=== PATIENT | male | born 1995 | race Caucasian/White ===

== ENCOUNTER 2023-09-30 04:00 | Day surgery (SDC) | payer OTHER ==
[~2023-09-30] VITALS: Ht 182.9 cm; Wt 92.0 kg
[2023-09-30 08:00] VITALS: BP 112/74
[2023-09-30 08:04] LABS: BASO% 0.3 % (0-3); EOS% 2.6 % (0-8); HEMATOCRIT 39.3 % (39.0-50.0); HEMOGLOBIN 13.4 g/dl (14.0-18.0); IMMATURE GRANULOCYTES 0.1 % (0.0-5.0); LYMPH% 36.9 % (15-41); MEAN CELL VOLUME 90.8 fL CALC (80.0-100.0); MEAN CORPUSCULAR HGB 30.9 pG CALC (26.0-32.0); MEAN CORPUSCULAR HGB CONC 34.1 g/dL CAL (32.0-36.0); MONO% 8.6 % (2-13); NEUT# 4.1 thou/uL (1.82-7.42); NEUT% 51.5 % (42-76); RED BLOOD COUNT 4.33 mill/uL (4.70-6.10); RED CELL DISTRI WIDTH 12.5 % (11.5-15.5)
[2023-09-30 08:40] LABS: ALBUMIN 4.6 g/dL (3.2-5.0); ALKALINE PHOSPHATASE 58 u/l (38-126); ANION GAP 15 (6-22 (CALC)); BILIRUBIN, TOTAL 0.6 mg/dL (0.2-1.3); BUN 18 mg/dL (9-20); BUN/CREATININE RATIO 18 (12-20 (CALC)); CARBON DIOXIDE 26 mmol/l (22-30); CHLORIDE 105 mmol/l (95-108); GFR FOR AFR.AMER. > 60 ML/MIN (>=60 (CALC)); GFR OTHER RACES > 60 ML/MIN (>=60 (CALC)); POTASSIUM 4.3 mmol/l (3.5-5.1); SGOT/AST 27 u/l (17-59); SODIUM 141 mmol/l (137-146); TOTAL PROTEIN 7.4 g/dL (6.3-8.2)
[2023-09-30] MEDS ORDERED: KLONOPIN2 MG PO (14:35)
[2023-09-30] MEDS ORDERED: CLONIDINE0.1 MG PO (14:35)
[2023-09-30] MEDS ORDERED: NALTREXONE50 MG PO (14:35)
[2023-09-30 19:59] VITALS: BP 132/82
[2023-09-30 22:24] VITALS: BP 143/82
[2023-10-01 04:09] VITALS: BP 138/78
[2023-10-01 05:29] LABS: HEMOGLOBIN 14.3 g/dl (14.0-18.0); IMMATURE GRANULOCYTES 0.1 % (0.0-5.0); LYMPH% 8.1 % (15-41); MEAN CELL VOLUME 87.9 fL CALC (80.0-100.0); MEAN CORPUSCULAR HGB 31.4 pG CALC (26.0-32.0); MEAN CORPUSCULAR HGB CONC 35.8 g/dL CAL (32.0-36.0); MONO% 2.6 % (2-13); NEUT# 10.39 thou/uL (1.82-7.42); NEUT% 89.2 % (42-76); RED BLOOD COUNT 4.55 mill/uL (4.70-6.10); RED CELL DISTRI WIDTH 12.1 % (11.5-15.5)
[2023-10-01 05:43] LABS: ALBUMIN 4.8 g/dL (3.2-5.0); ALKALINE PHOSPHATASE 69 u/l (38-126); ANION GAP 16 (6-22 (CALC)); BUN 14 mg/dL (9-20); BUN/CREATININE RATIO 14 (12-20 (CALC)); CARBON DIOXIDE 22 mmol/l (22-30); CHLORIDE 107 mmol/l (95-108); GFR FOR AFR.AMER. > 60 ML/MIN (>=60 (CALC)); GFR OTHER RACES > 60 ML/MIN (>=60 (CALC)); MAGNESIUM 1.9 mg/dL (1.6-2.3); POTASSIUM 4.1 mmol/l (3.5-5.1); SGOT/AST 40 u/l (17-59); SODIUM 140 mmol/l (137-146); TOTAL PROTEIN 7.8 g/dL (6.3-8.2)
[2023-10-01 05:45] LABS: BILIRUBIN, TOTAL 1.2 mg/dL (0.2-1.3)
[2023-10-01 08:11] VITALS: BP 132/76
[2023-10-01 12:05] VITALS: BP 132/76
== END 2023-10-01 13:54 | disposition home or self-care (01) | DRG 897 ==
LOC: MS2 04:00 → ANR 04:00 → MS2 15:52 → ANR 10-01 13:54
PROVIDERS: ATTEND Anesthesiology
DX: F11.20 Opioid dependence, uncomplicated (principal)
CPT/HCPCS: J2354; J3475